=== PATIENT | male | born 1960 | race Caucasian/White ===

== ENCOUNTER 2018-05-30 06:09 | Inpatient (IN) | payer OTHER ==
[2018-05-30] MEDS ORDERED: HEPARIN NA (PORCINE) 5,000 UNITS/ML 1ML VIAL ONE (07:35)
[2018-05-30] MEDS ORDERED: THROMBIN (BOVINE) 5,000 UNIT VIAL TP ONE (07:35)
[2018-05-30] MEDS ORDERED: BENZOIN/ALOE VERA/STORAX/TOLU 58 ML BOTTLE ONE (07:35)
[2018-05-30] MEDS ORDERED: ceFAZolin SODIUM 1 GM VIAL ONE ×2 (07:55→12:59)
[2018-05-30] MEDS ORDERED: SODIUM CHLORIDE 0.9% P/F 10 ML VIAL IJ ONE (07:55)
[2018-05-30] MEDS ORDERED: VANCOMYCIN 1,000 MG VIAL (RESTRICTED TO ID ONLY) ONE (07:55)
[2018-05-30] MEDS ORDERED: TRANEXAMIC ACID 1000 MG/10 ML VIAL ONE ×2 (07:55→10:31)
[2018-05-30] MEDS ORDERED: DEXAMETHASONE SOD PHOSPHATE 4 MG/1 ML VIAL ONE (07:56)
[2018-05-30] MEDS ORDERED: LIDOCAINE HCL/PF 2% SDV 5ML VIAL ONE (07:56)
[2018-05-30] MEDS ORDERED: fentaNYL CITRATE 250 MCG/5 ML VIAL ONE ×2 (07:56→08:21)
[2018-05-30] MEDS ORDERED: ONDANSETRON 4 MG/2 ML VIAL ONE ×2 (07:56→12:56)
[2018-05-30] MEDS ORDERED: MIDAZOLAM HCL 2 MG/2 ML SINGLE DOSE VIAL ONE ×5 (07:56)
[2018-05-30] MEDS ORDERED: PROPOFOL 20 ML ONE ×12 (07:57→12:01)
[2018-05-30] MEDS ORDERED: SUCCINYLCHOLINE CHLORIDE 200 MG/10 ML VIAL ONE (07:57)
[2018-05-30] MEDS ORDERED: ROCURONIUM BROMIDE 50 MG/5 ML VIAL ONE (07:57)
[2018-05-30] MEDS ORDERED: VANCOMYCIN 1,000 MG VIAL (RESTRICTED TO ID ONLY) IVPB ONE (09:00)
[2018-05-30] MEDS ORDERED: ceFAZolin 2 GRAM PREMIX BAG IVPB ONE (09:13)
[2018-05-30] MEDS ORDERED: ceFAZolin SODIUM 1 GM VIAL IVPB ONE (12:00)
--- NOTE | 2018-05-30 13:17 | PN ---
Progress Note (short form) - Note Progress Note: 58M s/p L2-S1 laminectomies; L4-5 SPO; L3-4, L4-5, L5-S1 PLIF; L2-S1 PISF POD # 0. -Admit to ICU post-op. -Pain control: per anaesthesia team; recommend RUBBER CUTTER. -DVT PPx: - Mechanical only: BEAN's, SCD's. -Incentive spirometry. -PT/OT/Rehab, OOB. -WBAT B/L LE. -q4h B/L LE NV checks. -Post-op antibiotics x 2 doses. -NPO until flatus. -f/u AM labs. -f/u drain output. -d/c Irwin catheter when ambulating. -Care per medical hospitalist team. -Discharge planning: [facility]; call for appointment; . -Will follow. Aneesh Lord MD (Orthopaedic Surgery).
[2018-05-30] MEDS ORDERED: ONDANSETRON 4 MG/2 ML VIAL IVPUSH PRN ×2 (13:19→13:22)
--- NOTE | 2018-05-30 13:19 | OP ---
Operative Note - Note: Operative Date: 05/30/18 Pre-Operative Diagnosis: Lumbar spinal stenosis Operation: 1. L2-S1 laminectomies. 2. L4-5 SPO. 3. L3-4, L4-5, L5-S1 PLIF. 4. L2-S1 PISF. 5. Autograft. 6. Allograft Post-Operative Diagnosis: Same as Pre-op Surgeon: Aneesh Lord Cartridge Filler: Rodriguez Lord Anesthesiologist/MONUMENT SETTER: Luis Huntley Anesthesia: General Specimens Removed: L3-4, L4-5, L5-S1 discs Estimated Blood Loss (mls): 800 Drains & Tubes with Location: 1 x superficial HemoVac Blood Volume Replaced (mls): 375 (Cell Saver) Fluid Volume Replaced (mls): 1,800 (Crystalloid) Operative Report Dictated: Yes
[2018-05-30] MEDS ORDERED: ACETAMINOPHEN 1000 MG/100 ML VIAL (NON FORMULARY) IVPB SCH ×2 (13:30→14:10)
[2018-05-30] MEDS ORDERED: HYDROmorphone *PCA* 10MG/50ML DISP.SYRIN PCA SCH (13:30)
[2018-05-30] MEDS ORDERED: LACTATED RINGERS SOLUTION 1,000 ML IV SCH (13:30)
[2018-05-30] MEDS ORDERED: LORazepam 2 MG/ML SDV VIAL ONE ×2 (14:27→20:52)
[2018-05-30] MEDS: LACTATED RINGERS SOLUTION 1,000 ML IV SCH ×2 (15:00→16:49)
--- NOTE | 2018-05-30 16:28 | CONSULT ---
Consultation: REQUESTING PROVIDER: CONSULT REQUEST: We have been asked to medically evaluate this patient for (ICU admission post-op). HISTORY OF PRESENT ILLNESS: 58 yo male admitted to the ICU s/p L2-S1 laminectomies; L4-5 SPO; L3-4, L4-5, L5 -S1 PLIF; L2-S1 PISF. Post-op day 0. He is currently complaining of 9/10 back pain laying in bed. He states that his pre-op pain was 10/10. He denies Headache , fever, chills, SOB, cough, chest pain, nausea, vomiting, weakness, parasthesias. REVIEW OF SYSTEMS: CONSTITUTIONAL: Absent: fever, chills, diaphoresis, generalized weakness, malaise, loss of appetite, weight change HEENT: Absent: rhinorrhea, nasal congestion, throat pain, throat swelling, difficulty swallowing, mouth swelling, ear pain, eye pain, visual changes CARDIOVASCULAR: Absent: chest pain, syncope, palpitations, irregular heart rate, lightheadedness , peripheral edema RESPIRATORY: Absent: cough, shortness of breath, dyspnea with exertion, orthopnea, wheezing, stridor, hemoptysis GASTROINTESTINAL: Absent: abdominal pain, abdominal distension, nausea, vomiting, diarrhea, constipation, melena, hematochezia GENITOURINARY: Absent: dysuria, frequency, urgency, hesitancy, hematuria, flank pain, genital pain MUSCULOSKELETAL: back pain Absent: myalgia, arthralgia, joint swelling, neck pain SKIN: Absent: rash, itching, pallor HEMATOLOGIC/IMMUNOLOGIC: Absent: easy bleeding, easy bruising, lymphadenopathy, frequent infections ENDOCRINE: Absent: unexplained weight gain, unexplained weight loss, heat intolerance, cold intolerance NEUROLOGIC: decreased sensation on great toes b/l Absent: headache, focal weakness or paresthesias, dizziness, unsteady gait, seizure, mental status changes, bladder or bowel incontinence PSYCHIATRIC: Absent: anxiety, depression, suicidal or homicidal ideation, hallucinations. PHYSICAL EXAMINATION Vital Signs - 24 hr 05/30/18 05/30/18 05/30/18 06:57 07:03 13:13 Temperature 98.8 F 99.0 F Pulse Rate 70 94 H Respiratory 20 18 Rate Blood Pressure 139/79 124/90 O2 Sat by Pulse 99 98 Oximetry (%) 05/30/18 05/30/18 05/30/18 13:30 13:35 13:45 Temperature Pulse Rate 80 80 83 Respiratory 16 16 15 Rate Blood Pressure 125/83 125/83 130/75 O2 Sat by Pulse 99 100 Oximetry (%) 05/30/18 05/30/18 05/30/18 14:00 14:15 14:30 Temperature Pulse Rate 82 89 84 Respiratory 13 18 15 Rate Blood Pressure 136/80 137/74 138/71 O2 Sat by Pulse 100 100 99 Oximetry (%) 05/30/18 14:45 Temperature Pulse Rate 81 Respiratory 12 Rate Blood Pressure 139/79 O2 Sat by Pulse 100 Oximetry (%) GENERAL: Awake, alert, and fully oriented, in no acute distress. HEAD: Normal with no signs of trauma. EYES: PERRL, sclera anicteric, conjunctiva clear. No lid lag. EARS, NOSE, THROAT: Ears normal, nares patent, oropharynx clear without exudates. Moist mucous membranes. NECK: supple without lymphadenopathy, JVD, or masses. LUNGS: Breath sounds equal, clear to auscultation bilaterally. No wheezes, and no crackles. No accessory muscle use. HEART: Regular rate and rhythm, normal S1 and S2 without murmur, rub or gallop. ABDOMEN: Soft, nontender, not distended, hypoactive bowel sounds, no guarding, no rebound, no masses. MUSCULOSKELETAL: Dressing clean dry and in tact in the Lumbar region of the back. No bony deformities or tenderness. No CVA tenderness. UPPER EXTREMITIES: 2+ pulses, warm, well-perfused. No cyanosis. No clubbing. No peripheral edema. LOWER EXTREMITIES: 2+ pulses, warm, well-perfused. No calf tenderness. No peripheral edema. NEUROLOGICAL: Cranial nerves II-XII grossly intact. Normal speech. Gait unable to be observed PSYCHIATRIC: Cooperative. Good eye contact. Appropriate mood and affect. SKIN: Warm, dry, normal turgor, no rashes or lesions noted. Laboratory Results - last 24 hr 05/30/18 09:31 Blood Type O POSITIVE Antibody Screen Negative Active Medications Generic Name Dose Route Start Last Admin Trade Name Freq PRN Reason Stop Dose Admin Acetaminophen 1,000 mg 05/30/18 14:10 Ofirmev Injection - IVPB 06/01/18 10:01 Q8H-IV SUHAIL Bacitracin 1 applic 05/30/18 22:00 Bacitracin - TP BID SUHAIL Hydromorphone HCl 10 mg 05/30/18 14:11 Dilaudid Bankruptcy Manager - DEBUBBLIZER 06/02/18 13:22 DEBUBBLIZER SUHAIL Protocol Lactated Ringer's 1,000 mls @ 125 mls/hr 05/30/18 13:30 Lactated Ringers Solution IV ASDIR SUHAIL Cefazolin Sodium/Dextrose 2 gm in 50 mls @ 100 mls/hr 05/30/18 20:00 Ancef 2 Gm Premixed Ivpb - IVPB 05/31/18 04:29 Q8H SUHAIL Lorazepam 1 mg 05/30/18 13:21 Ativan Injection - IVPUSH Q6H PRN MUSCLE SPASMS Ondansetron HCl 4 mg 05/30/18 13:19 Zofran Injection IVPUSH Q6H PRN NAUSEA AND/OR VOMITING Ondansetron HCl 4 mg 05/30/18 13:22 Zofran Injection IVPUSH 05/31/18 03:00 Q6H PRN NAUSEA AND/OR VOMITING ASSESSMENT/PLAN: 58 yo male admitted to the ICU s/p L2-S1 laminectomies; L4-5 SPO; L3-4, L4-5, L5 -S1 PLIF; L2-S1 PISF. Post-op day 0. Neuro -post-op day 0 -Neuro checks Q4 as per surgery recommendation Cardio -No known cardiac issues at this time Respiratory -No known respiratory problems -Incentive spirometry to decrease risk of post-op atelectasis/pneumonia GI -NPO until flatus -Will add bowel regimen as necessary -Zofran PRN for nausea/vomiting Post-op Management -Pain control: DEBUBBLIZER as per anesthesia Will monitor pain and switch to PO pain medication when able Ofirmev 1000mg IV Q8 PRN Ativan 1mg IV Q6 PRN for muscle spasms -OOB as tolerated -d/c dumont when Ambulating DVT Prophylaxis -TEDs/SCDs only as per surgery FEN -Fluids: LR @ 125 cc/hr -Electrolytes: No electrolyte abnormalities, will follow BMP -Nutrition: NPO until Flatus Disposition Monitor in the ICU for now Problem List - Problems (1) Lumbar back pain with radiculopathy affecting lower extremity Code(s): M54.16 - RADICULOPATHY, LUMBAR REGION Visit type - Emergency Visit Emergency Visit: No - New Patient This patient is new to me today: Yes Date on this admission: 05/30/18 - Critical Care Critical Care patient: Yes Total Critical Care Time (in minutes): 35 Critical Care Statement: The care of this patient involved high complexity decision making to prevent further life threatening deterioration of the patient 's condition and/or to evaluate & treat vital organ system(s) failure or risk of failure.
[2018-05-30] MEDS: HYDROmorphone *PCA* 10MG/50ML DISP.SYRIN PCA SCH (16:49)
[2018-05-30 18:55] LABS: HEMATOCRIT 37.6 % (35.4-49); LYMPH % 5.6 % (8-40); MCH 31.5 pg (25.7-33.7); MCHC 34.6 g/dl (32.0-35.9); MEAN CELL VOLUME 91.1 fl (80-96); MEAN PLT VOLUME 7.6 fl (7.5-11.1); MONO % 9.8 % (3.8-10.2); NEUT % 84.6 % (42.8-82.8); PLATELET COUNT 248 K/MM3 (134-434); RBC 4.13 M/mm3 (4.00-5.60); RDW 13.1 % (11.9-15.9); WHITE BLOOD COUNT 10.2 K/mm3 (4.0-10.0)
[2018-05-30 19:39] LABS: ALBUMIN 3.5 g/dl (3.4-5.0); ANION GAP 8 (8-16); BLOOD UREA NITROGEN 11 mg/dL (7-18); CALCIUM 8.2 mg/dL (8.5-10.1); CHLORIDE 104 mmol/L (98-107); CO2 26 mmol/L (21-32); CREATININE 0.8 mg/dL (0.7-1.3); GLUCOSE,RANDOM 126 mg/dL (74-106); POTASSIUM 4.5 mmol/L (3.5-5.1); SGOT/AST 47 U/L (15-37); SGPT/ALT 37 U/L (12-78); SODIUM 138 mmol/L (136-145); TOT PROT 6.3 g/dl (6.4-8.2)
[2018-05-30 19:40] LABS: ALK PHOS 61 U/L (45-117)
[2018-05-30] MEDS ORDERED: ceFAZolin 2 GRAM PREMIX BAG IVPB SCH (20:00)
[2018-05-30] MEDS: CEFAZOLIN 2 GM/D5W 2 GM/50 ML ML IVPB SCH (20:56)
[2018-05-30] MEDS: BACITRACIN 15 GM TUBE TOPICAL OINTMENT TP SCH (21:06)
[2018-05-30] MEDS: ACETAMINOPHEN 1000 MG/100 ML VIAL (NON FORMULARY) IVPB SCH (21:06)
[2018-05-31] MEDS: CEFAZOLIN 2 GM/D5W 2 GM/50 ML ML IVPB SCH (03:17)
[2018-05-31] MEDS: ACETAMINOPHEN 1000 MG/100 ML VIAL (NON FORMULARY) IVPB SCH ×3 (05:13→22:01)
[2018-05-31 05:52] LABS: HEMATOCRIT 34.3 % (35.4-49); HEMOGLOBIN 11.9 GM/dL (11.7-16.9); MCH 31.8 pg (25.7-33.7); MCHC 34.8 g/dl (32.0-35.9); MEAN CELL VOLUME 91.4 fl (80-96); MEAN PLT VOLUME 7.2 fl (7.5-11.1); PLATELET COUNT 190 K/MM3 (134-434); RBC 3.75 M/mm3 (4.00-5.60); RDW 13.3 % (11.9-15.9); WHITE BLOOD COUNT 6.4 K/mm3 (4.0-10.0)
--- NOTE | 2018-05-31 06:33 | OP ---
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 OPERATION PERFORMED: 1. Laminectomy, L2, L3, L4, L5, S1 with associated undercutting facetectomy. 2. Diskectomy with posterior lumbar interbody fusion and cages, L3-4, L4-5, L5- S1. 3. Marion-Phillips osteotomy, L4-5. 4. Pedicle screw instrumentation, L2, L3, L4, L5, S1. 5. Posterolateral arthrodesis, L2, L3, L4, L5, S1. 6. Autologous bone graft. 7. Use of biplanar fluoroscopy and intraoperative neural monitoring. 8. Use of bone marrow aspirate concentrate. ANESTHESIA: General. ANTIBIOTICS GIVEN: Kefzol 2 g, vancomycin 1 g preoperative, Kefzol 1 g given intraoperatively. BLOOD LOSS: Approximately 600 mL. Approximately 350 mL of blood was given back via Cell Saver. OPERATION DETAILS: Patient correctly identified, brought to the operating room. Lumbar spine was prepped, draped in the routine manner with Betadine scrub solution, wiped off with alcohol, DuraPrep applied. A window drape applied. A midline incision utilized. We exposed from the tip of the spinous process of L1 right down to the tip of the spinal process of L1. The dissection was taken down the spinous process, over the lamina, facet joints after the tip of the transverse process, exposing each transverse process from L2 right to the ala of the sacrum which was itself exposed appropriately. Verification of levels with lateral fluoroscopic x-rays as well as the use of anatomical guidelines identifying the loss of segmental motional component. A central laminectomy was performed using Lexsells as well as Kerrison upcuts. Once this had been performed, the dura readily visualized. In order to achieve an undercutting facetectomy, the inferior facet with the pars interarticularis at each level was imploded into the canal. The superior facets were resected completely, providing a complete decompression. Palpating gently through the dura, the actual large lumps of disks were notable. This was at L3-4, L4-5 , and L5-S1. Each disk was dealt with in exactly the same manner. From right to left , the dura was retracted gently. Epidural veins were dealt with with bipolar set at 20 mA. The disks were identified clearly. An annulectomy and annulotomy performed. The L4-5 disk was shaved appropriately to receive a size 11 TETRAfuse spacer. The L3-4 was with a 10 mm, and the L5-S1 was with a 9-mm cage. Each cage, prior to insertion, each interbody space was noted to be free of disk material using serrated curettes, william, as well as pituitary rongeurs. All disk material was removed down to healthy endplate bone. Once this had been performed, the interbody space was packed with graft, and each interspace, a TETRAfuse implant was inserted. Once this had been performed, the Marion-Phillips osteotomy at L3-4 was then completed in order to restore his lumbar lordosis. This was by resection of the bone appropriately both left- and right-hand side. Cages were inserted at each level, measured as above. Each cage was then verified on lateral fluoroscopic x-ray to show excellent re-opening of the interbody space and foramina appropriately. The pedicles of L2 to S1 were identified using anatomical guidelines. A 4.5 drill was utilized in order to gain entry to the pedicle and to the vertebral body. Once this had been performed, each pedicle was palpated with a ball tipped feeler.. Each screw measured as 45 x 6.5 mm for all screws from L2 right down to S1. The screws were tested with intraoperative neural monitoring and found to be completely well above the safe zone of 20 mA. Once this had been completed, the rods were contoured appropriately onto the screw heads, fixed with the appropriate screw caps and tensioning torque device brought about solid fixation from L2 to S1. One crosslink applied. Solid cross linkage achieved. The intertransverse plane was then exposed using retractors to expose the transverse processes. Using a mixture of bone that was harvested from the patient's self, milled in a [employer], combined with allograft expansion as well as bone marrow aspirate concentrate of which we took 120 mL from the same wound through the ilium on the right. This was spun down to the CD34 cells and mixed with graft. Once the bone grafting had been completed, the final motors revealed no problems and complications in neural monitoring. The wounds were thoroughly lavaged. Closure was as follows: The muscle and fragmented muscle from the retractors were resected using Tipton scissors, and the closure as a complex wound closure as follows: Muscle 1 Vicryl, fascia 1 Vicryl, subcutaneous 1 and 2-0 Vicryl, skin with skin francis. DRAINAGE: A 1/8-inch Hemovac in the subcutaneous layer. OVERALL COMMENT: Operation went well. No complications. MD RENETTA Dsouza/[id number] MTDD
[2018-05-31 06:34] LABS: CALCIUM 8.1 mg/dL (8.5-10.1); CHLORIDE 101 mmol/L (98-107); POTASSIUM 4.3 mmol/L (3.5-5.1); SODIUM 138 mmol/L (136-145)
[2018-05-31 06:38] LABS: ANION GAP 6 (8-16); BLOOD UREA NITROGEN 10 mg/dL (7-18); CO2 31 mmol/L (21-32); CREATININE 0.8 mg/dL (0.7-1.3); GLUCOSE,RANDOM 98 mg/dL (74-106); MAGNESIUM 1.9 mg/dL (1.8-2.4); PHOSPHOROUS 2.7 mg/dL (2.5-4.9)
[2018-05-31] MEDS ORDERED: POTASSIUM PHOSPHATE 30 MM in DEXTROSE 5%-WATER - 250 ML IVPB ONE (07:56)
[2018-05-31] MEDS ORDERED: MAGNESIUM SULF 50% (8.12 MEQ/2 ML-1 GM VIAL) IVPB ONE (09:00)
[2018-05-31] MEDS ORDERED: NAPH,MB-DB/K PH,MBDB POWDER PACKET PO ONE (09:00)
[2018-05-31] MEDS ORDERED: MAGNESIUM OXIDE 400 MG TABLET (FP) PO ONE (09:15)
[2018-05-31] MEDS: LACTATED RINGERS SOLUTION 1,000 ML IV SCH (09:30)
[2018-05-31] MEDS: BACITRACIN 15 GM TUBE TOPICAL OINTMENT TP SCH ×2 (10:45→22:03)
--- NOTE | 2018-05-31 13:34 | PN ---
Physical Exam: SUBJECTIVE: Patient seen and examined in the ICU. States he is still having pain but improved from yesterday. Pt had flatus this morning and tolerated being out of bed. Worked with physical therapy as well and tolerated getting to chair. OBJECTIVE: Vital Signs Period Temp Pulse Resp BP Sys/Barraza Pulse Ox Last 24 Hr 98.4 F-100.3 F 77-94 10-21 110-151/26-88 94-100 GENERAL: Awake, alert, and fully oriented, in no acute distress. HEAD: Normal with no signs of trauma. EYES: PERRL, sclera anicteric, conjunctiva clear. No lid lag. EARS, NOSE, THROAT: Ears normal, nares patent, oropharynx clear without exudates. Moist mucous membranes. NECK: supple without lymphadenopathy, JVD, or masses. LUNGS: Breath sounds equal, clear to auscultation bilaterally. No wheezes, and no crackles. No accessory muscle use. HEART: Regular rate and rhythm, normal S1 and S2 without murmur, rub or gallop. ABDOMEN: Soft, nontender, not distended, normoactive bowel sounds, no guarding, no rebound, no masses. MUSCULOSKELETAL: Dressing clean dry and in tact in the Lumbar region of the back. No bony deformities or tenderness. No CVA tenderness. UPPER EXTREMITIES: 2+ pulses, warm, well-perfused. No cyanosis. No clubbing. No peripheral edema. LOWER EXTREMITIES: 2+ pulses, warm, well-perfused. No calf tenderness. No peripheral edema. NEUROLOGICAL: Cranial nerves II-XII grossly intact. Normal speech. Gait not observed PSYCHIATRIC: Cooperative. Good eye contact. Appropriate mood and affect. SKIN: Warm, dry, normal turgor, no rashes or lesions noted. Laboratory Results - last 24 hr 05/30/18 05/30/18 05/31/18 18:40 18:40 05:30 WBC 10.2 H 6.4 RBC 4.13 3.75 L Hgb 13.0 11.9 Hct 37.6 34.3 L MCV 91.1 91.4 MCH 31.5 31.8 MCHC 34.6 34.8 RDW 13.1 13.3 Plt Count 248 190 D MPV 7.6 7.2 L Absolute Neuts (auto) 8.6 Neutrophils % 84.6 H Lymphocytes % 5.6 L Monocytes % 9.8 Eosinophils % 0.0 Basophils % 0.0 Nucleated RBC % 0 Sodium 138 Potassium 4.5 Chloride 104 Carbon Dioxide 26 Anion Gap 8 BUN 11 Creatinine 0.8 Creat Clearance w eGFR > 60 Random Glucose 126 H Calcium 8.2 L Phosphorus Magnesium Total Bilirubin 1.0 AST 47 H ALT 37 Alkaline Phosphatase 61 Total Protein 6.3 L Albumin 3.5 05/31/18 05:30 WBC RBC Hgb Hct MCV MCH MCHC RDW Plt Count MPV Absolute Neuts (auto) Neutrophils % Lymphocytes % Monocytes % Eosinophils % Basophils % Nucleated RBC % Sodium 138 Potassium 4.3 Chloride 101 Carbon Dioxide 31 Anion Gap 6 L BUN 10 Creatinine 0.8 Creat Clearance w eGFR > 60 Random Glucose 98 D Calcium 8.1 L Phosphorus 2.7 Magnesium 1.9 Total Bilirubin AST ALT Alkaline Phosphatase Total Protein Albumin Active Medications Generic Name Dose Route Start Last Admin Trade Name Freq PRN Reason Stop Dose Admin Acetaminophen 1,000 mg 05/30/18 22:00 05/31/18 05:13 Ofirmev Injection - IVPB 06/01/18 06:01 1,000 mg Q8H SUHAIL Administration Bacitracin 1 applic 05/30/18 22:00 05/31/18 10:45 Bacitracin - TP 1 applic BID SUHAIL Administration Hydromorphone HCl 10 mg 05/30/18 14:11 05/30/18 16:49 Dilaudid Dowel Pointer - VP PRODUCT 06/02/18 13:22 10 mg VP PRODUCT SUHAIL Administration Protocol Lactated Ringer's 1,000 mls @ 125 mls/hr 05/30/18 13:30 05/31/18 09:30 Lactated Ringers Solution IV 125 mls/hr ASDIR SUHAIL Administration Lorazepam 1 mg 05/30/18 13:21 05/30/18 21:08 Ativan Injection - IVPUSH 1 mg Q6H PRN Administration MUSCLE SPASMS Ondansetron HCl 4 mg 05/30/18 13:19 Zofran Injection IVPUSH Q6H PRN NAUSEA AND/OR VOMITING ASSESSMENT/PLAN: 58 yo male admitted to the ICU s/p L2-S1 laminectomies; L4-5 SPO; L3-4, L4-5, L5 -S1 PLIF; L2-S1 PISF. Post-op day 1 Neuro -post-op day 1 -Neuro checks Q4 as per surgery recommendation Cardio -No known cardiac issues at this time Respiratory -No known respiratory problems -Incentive spirometry to decrease risk of post-op atelectasis/pneumonia GI -Advanced to Clear liquids, will advance as tolerated -Will add bowel regimen as necessary -Zofran PRN for nausea/vomiting Post-op Management -Pain control: VP PRODUCT as per anesthesia Will monitor pain and switch to PO pain medication when able Ofirmev 1000mg IV Q8 PRN Ativan 1mg IV Q6 PRN for muscle spasms -OOB -d/c dumont DVT Prophylaxis -TEDs/SCDs only as per surgery FEN -Fluids: LR @ 125 cc/hr, will decrease if tolerating diet -Electrolytes: Phos 2.7, Mg 1.9, repleted will follow BMP -Nutrition: Clear liquids Disposition Monitor in the ICU for now Problem List - Problems (1) Lumbar back pain with radiculopathy affecting lower extremity Code(s): M54.16 - RADICULOPATHY, LUMBAR REGION Visit type - Emergency Visit Emergency Visit: No - New Patient This patient is new to me today: No - Critical Care Critical Care patient: Yes Total Critical Care Time (in minutes): 35 Critical Care Statement: The care of this patient involved high complexity decision making to prevent further life threatening deterioration of the patient 's condition and/or to evaluate & treat vital organ system(s) failure or risk of failure.
--- NOTE | 2018-05-31 14:00 | PATH ---
Surgical Pathology Report Patient Name: SALLY SUTTON [facility]. Rec. #: [id number] /Age/Gender: 1960 (Age: 58) / M Account: [id number] Location: [facility] INDUSTRIAL ENGINEERING ANALYST Taken: 05/30/2018 Received: 05/30/2018 Reported: 05/31/2018 Physicians: Aneesh Lord M.D. Specimen(s) Received L2,L3,L4,L5,S1 DISC Clinical History Lumbar spinal stenosis Final Diagnosis [id number] DISC, LUMBAR INTERBODY FUSION: INTERVERTEBRAL DISC TISSUE AND DENSE FIBROCONNECTIVE TISSUE. Electronically Signed Christine Bull M.D. Gross Description Received in formalin labeled "B8-T1-J0-L5-S1 disc," is a 5.5 x 3.0 x 0.4 cm aggregate of sheikh red fragments of fibrocartilaginous tissue. A bottling equipment sales representative portion is submitted in one cassette. /05/30/2018 saudi05/30/2018
--- NOTE | 2018-05-31 14:40 | PN ---
Progress Note (short form) - Note Progress Note: Anesthesia postop note note 58 y/o M s/p GA for L2-S1 PLIF, diaudid visual presentation manager for postop pain management. POD#1, vss, aaox3, pain fairly well controlled, ambulated earlier Will continue visual presentation manager today No anesthesia complications.
--- NOTE | 2018-05-31 16:31 | PN ---
Teaching Attending Note Name of Resident: Ian Jacobs ATTENDING PHYSICIAN STATEMENT I saw and evaluated the patient. I reviewed the resident's note and discussed the case with the resident. I agree with the resident's findings and plan as documented. SUBJECTIVE: Patient seen and examined in the ICU. Awake and alert. Back pain reported to be better than last night. Intake & Output 05/28/18 05/29/18 05/30/18 05/31/18 23:59 23:59 23:59 23:59 Intake Total 2800 1900 Output Total 1920 3400 Balance 880 -1500 Weight 238 lb 6.4 oz Last Vital Signs Temp Pulse Resp BP Pulse Ox 98.9 F 92 H 20 139/89 99 05/31/18 16:00 05/31/18 16:00 05/31/18 16:00 05/31/18 16:00 05/30/18 21:00 Active Medications Acetaminophen (Ofirmev Injection -) 1,000 mg IVPB Q8H SUHAIL Stop: 06/01/18 06:01 Last Admin: 05/31/18 14:55 Dose: 1,000 mg Bacitracin (Bacitracin -) 1 applic TP BID SUHAIL Last Admin: 05/31/18 10:45 Dose: 1 applic Hydromorphone HCl (Dilaudid Tank Tender -) 10 mg GRE TUTOR GRE TUTOR [facility]; Protocol Stop: 06/02/18 13:22 Last Admin: 05/30/18 16:49 Dose: 10 mg Lactated Ringer's (Lactated Ringers Solution) 1,000 mls @ 125 mls/hr IV ASDIR SUHAIL Last Admin: 05/31/18 09:30 Dose: 125 mls/hr Lorazepam (Ativan Injection -) 1 mg IVPUSH Q6H PRN PRN Reason: MUSCLE SPASMS Last Admin: 05/30/18 21:08 Dose: 1 mg Ondansetron HCl (Zofran Injection) 4 mg IVPUSH Q6H PRN PRN Reason: NAUSEA AND/OR VOMITING GENERAL: Awake, alert, and fully oriented, NAD HEAD: Normal with no signs of trauma. EYES: PERRL, sclera anicteric, conjunctiva clear. No lid lag. EARS, NOSE, THROAT: Ears normal, nares patent, oropharynx clear without exudates. Moist mucous membranes. NECK: supple without lymphadenopathy, JVD, or masses. LUNGS: Clear to auscultation bilaterally. No wheezes, and no crackles. No accessory muscle use. HEART: Regular rate and rhythm, normal S1 and S2 without murmur, rub or gallop. ABDOMEN: Soft, nontender, not distended, hypoactive bowel sounds, no guarding, no rebound, no masses. MUSCULOSKELETAL: Dressing clean dry and in tact in the Lumbar region of the back. No CVA tenderness. UPPER EXTREMITIES: 2+ pulses, warm, well-perfused. No cyanosis. No clubbing. No peripheral edema. LOWER EXTREMITIES: 2+ pulses, warm, well-perfused. No calf tenderness. No peripheral edema. NEUROLOGICAL: Non-focal PSYCHIATRIC: Cooperative. Good eye contact. Appropriate mood and affect. SKIN: Warm, dry, normal turgor, no rashes or lesions noted. Laboratory Results - last 24 hr 05/30/18 05/30/18 05/31/18 18:40 18:40 05:30 WBC 10.2 H 6.4 RBC 4.13 3.75 L Hgb 13.0 11.9 Hct 37.6 34.3 L MCV 91.1 91.4 MCH 31.5 31.8 MCHC 34.6 34.8 RDW 13.1 13.3 Plt Count 248 190 D MPV 7.6 7.2 L Absolute Neuts (auto) 8.6 Neutrophils % 84.6 H Lymphocytes % 5.6 L Monocytes % 9.8 Eosinophils % 0.0 Basophils % 0.0 Nucleated RBC % 0 Sodium 138 Potassium 4.5 Chloride 104 Carbon Dioxide 26 Anion Gap 8 BUN 11 Creatinine 0.8 Creat Clearance w eGFR > 60 Random Glucose 126 H Calcium 8.2 L Phosphorus Magnesium Total Bilirubin 1.0 AST 47 H ALT 37 Alkaline Phosphatase 61 Total Protein 6.3 L Albumin 3.5 05/31/18 05:30 WBC RBC Hgb Hct MCV MCH MCHC RDW Plt Count MPV Absolute Neuts (auto) Neutrophils % Lymphocytes % Monocytes % Eosinophils % Basophils % Nucleated RBC % Sodium 138 Potassium 4.3 Chloride 101 Carbon Dioxide 31 Anion Gap 6 L BUN 10 Creatinine 0.8 Creat Clearance w eGFR > 60 Random Glucose 98 D Calcium 8.1 L Phosphorus 2.7 Magnesium 1.9 Total Bilirubin AST ALT Alkaline Phosphatase Total Protein Albumin ASSESSMENT/PLAN: POD #1: L2-S1 laminectomies; L4-5 SPO; L3-4, L4-5, L5-S1 PLIF; L2-S1 PISF. Pain control O2 as needed VTE prophylaxis NPO until flatus Incentive Spirometry Ativan PRN OOB to chair D/C dumont when mobile PO as tolerated Dr Crowe Critical care time spent in reviewing chart, evaluating patient and formulating plan - 36 minutes.
--- NOTE | 2018-05-31 16:52 | PN ---
Teaching Attending Note Name of Resident: April Rodriguez ATTENDING PHYSICIAN STATEMENT I saw and evaluated the patient. I reviewed the resident's note and discussed the case with the resident. I agree with the resident's findings and plan as documented. SUBJECTIVE:states pain is better today. improves with PIPELINE SYSTEMS OPERATOR pump. states does not have an appetite and wants to stick to liquid diet for today. denies Cp, SOB, fever, chills, N/V/C/D OBJECTIVE: Last Vital Signs Temp Pulse Resp BP Pulse Ox 98.9 F 92 H 20 139/89 99 05/31/18 16:00 05/31/18 16:00 05/31/18 16:00 05/31/18 16:00 05/30/18 21:00 General NAD CV S1 S2 RRR no murmur/rub/gallop Lungs CTA B/L no wheezing/rales/rhonchi back +hemostat with drain extremities sensation grossly intact, strength equal in flexion/extension in proximal and distal muscles ASSESSMENT AND PLAN: 58yo M wtih PMH insomnia, dyslipidemia and spinal stenosis which scheduled back surgery 1. spinal stenosis- s/p L2-S1 laminectomies; L4-5 SPO; L3-4, L4-5, L5-S1 PLIF; L2-S1 PISF performed on 05/30. tolerated surgery well. pain is controlled with PIPELINE SYSTEMS OPERATOR pump however pt is locking himself out. would cont pump for an additional day and attempt to transition to oral in next 24H. completed johanna-operative Abx. frequent neurochecks, OOB to chair. d/c dumont if ambulating. d/c IVF once tolerating diet. wound management per ortho. further recommendations per ortho 2. Acute blood loss anemia- due to surgery. EBV 800cc with cell saver. Hgb stable. will cont to monitor. no indication for txn at this time 3. dyslipidemia- re-start statin once tolerating diet 4. insomnia- ambien prn 5. DVT ppx- SCD. would hold pharmacologic anticoagulation with recent surgery 6. stable for transfer to floors The care of this patient involved high complexity decision making to prevent further life threatening deterioration of the patient's condition and/or to evaluate & treat vital organ system(s) failure or risk of . 40 minutes
--- NOTE | 2018-05-31 18:25 | PN ---
Physical Exam: SUBJECTIVE: Patient seen and examined this morning in the ICU. States the pain is still 9/10. Currently on LEASING REPRESENTATIVE pump. Last BM was Wednesday. He does not have an appetite and would prefer to be on a liquid diet for today. Continues to have some throat soreness. Denies fevers, chills, chest pain, SOB, nausea, vomiting. OBJECTIVE: Vital Signs Period Temp Pulse Resp BP Sys/Barraza Pulse Ox Last 24 Hr 98.4 F-100.5 F 80-94 11- 124-151/26- 99 GENERAL: The patient is awake, alert, and fully oriented, in no acute distress. THROAT: Oropharynx clear without exudates, moist mucous membranes. LUNGS: Breath sounds equal, clear to auscultation bilaterally, no wheezes, no crackles HEART: Regular rate and rhythm, S1, S2 without murmur, rub or gallop. ABDOMEN: Soft, nontender, nondistended, normoactive bowel sounds, no guarding, no rebound : Dumont catheter draining dark yellow urine BACK: Large bandage covering wound, Hemovac with drain present, no surrounding erythema or drainage EXTREMITIES: 2+ pulses, warm, no edema, Muscle strength 5/5 throughout NEUROLOGICAL: CN II-XII grossly intact, Normal speech, gait not observed, C5-T1 gross sensation intact b/l, L4 Sensation greater on the Left, L5-S1 gross sensation intact b/l Laboratory Results - last 24 hr 05/30/18 05/30/18 05/31/18 18:40 18:40 05:30 WBC 10.2 H 6.4 RBC 4.13 3.75 L Hgb 13.0 11.9 Hct 37.6 34.3 L MCV 91.1 91.4 MCH 31.5 31.8 MCHC 34.6 34.8 RDW 13.1 13.3 Plt Count 248 190 D MPV 7.6 7.2 L Absolute Neuts (auto) 8.6 Neutrophils % 84.6 H Lymphocytes % 5.6 L Monocytes % 9.8 Eosinophils % 0.0 Basophils % 0.0 Nucleated RBC % 0 Sodium 138 Potassium 4.5 Chloride 104 Carbon Dioxide 26 Anion Gap 8 BUN 11 Creatinine 0.8 Creat Clearance w eGFR > 60 Random Glucose 126 H Calcium 8.2 L Phosphorus Magnesium Total Bilirubin 1.0 AST 47 H ALT 37 Alkaline Phosphatase 61 Total Protein 6.3 L Albumin 3.5 05/31/18 05:30 WBC RBC Hgb Hct MCV MCH MCHC RDW Plt Count MPV Absolute Neuts (auto) Neutrophils % Lymphocytes % Monocytes % Eosinophils % Basophils % Nucleated RBC % Sodium 138 Potassium 4.3 Chloride 101 Carbon Dioxide 31 Anion Gap 6 L BUN 10 Creatinine 0.8 Creat Clearance w eGFR > 60 Random Glucose 98 D Calcium 8.1 L Phosphorus 2.7 Magnesium 1.9 Total Bilirubin AST ALT Alkaline Phosphatase Total Protein Albumin Active Medications Acetaminophen (Ofirmev Injection -) 1,000 mg IVPB Q8H SUHAIL Stop: 06/01/18 06:01 Last Admin: 05/31/18 14:55 Dose: 1,000 mg Bacitracin (Bacitracin -) 1 applic TP BID SUHAIL Last Admin: 05/31/18 10:45 Dose: 1 applic Hydromorphone HCl (Dilaudid Order Booker -) 10 mg LEASING REPRESENTATIVE LEASING REPRESENTATIVE SUHAIL; Protocol Stop: 06/02/18 13:22 Last Admin: 05/30/18 16:49 Dose: 10 mg Lactated Ringer's (Lactated Ringers Solution) 1,000 mls @ 125 mls/hr IV ASDIR SUHAIL Last Admin: 05/31/18 09:30 Dose: 125 mls/hr Lorazepam (Ativan Injection -) 1 mg IVPUSH Q6H PRN PRN Reason: MUSCLE SPASMS Last Admin: 05/30/18 21:08 Dose: 1 mg Ondansetron HCl (Zofran Injection) 4 mg IVPUSH Q6H PRN PRN Reason: NAUSEA AND/OR VOMITING ASSESSMENT/PLAN: 58 y/o M with PMHx of Spinal stenosis is PostOp in the ICU 1. Spinal Stenosis - S/P L2-S1 laminectomies, L4-5 SPO, L3-S1 PLIF, L2-S1 PISF POD#1 (Sx on 05/30) - Pain controlled with LEASING REPRESENTATIVE pump, continue - Completed 2 doses of Cefazolin johanna-operatively - Continue Incentive spirometry - Continue Frequent neurochecks - Encourage to be out of bed - Can d/c dumont once ambulating - PT/OT - Can d/c IVF once tolerating diet - Wound management instructions as per ortho - Clear liquid diet 2. Acute blood loss anemia - 600ml loss during surgery, 350ml returned via cell saver - Hgb remians stable - Continue to monitor, CBC tmrw 3. HLD - Continue home dose Atorvastatin 10mg PO Daily once tolerating diet 4. Insomnia - Continue home dose Ambien 10mg PO Daily PRN 5. PPX - DVT: SCD 6. FEN - Continue oral hydration - Replete lytes as needed - Clear liquid diet Dispo: transfer to floors Visit type - Emergency Visit Emergency Visit: No - New Patient This patient is new to me today: Yes Date on this admission: 05/31/18 - Critical Care Critical Care patient: Yes Total Critical Care Time (in minutes): 36 Critical Care Statement: The care of this patient involved high complexity decision making to prevent further life threatening deterioration of the patient 's condition and/or to evaluate & treat vital organ system(s) failure or risk of failure.
[2018-05-31] MEDS ORDERED: LORazepam 2 MG/ML SDV VIAL IVPUSH PRN (18:37)
[2018-05-31] MEDS ORDERED: HYDROmorphone *PCA* 10MG/50ML DISP.SYRIN PCA SCH (18:37)
[2018-05-31] MEDS ORDERED: LACTATED RINGERS SOLUTION 1,000 ML IV SCH (18:37)
[2018-05-31] MEDS ORDERED: ONDANSETRON 4 MG/2 ML VIAL IVPUSH PRN (18:37)
[2018-06-01 05:50] LABS: BASO % 0.3 % (0-2.0); EOS % 0.8 % (0-4.5); HEMOGLOBIN 11.6 GM/dL (11.7-16.9); LYMPH % 18.6 % (8-40); MCH 31.4 pg (25.7-33.7); MCHC 34.1 g/dl (32.0-35.9); MEAN CELL VOLUME 92.1 fl (80-96); MEAN PLT VOLUME 7.2 fl (7.5-11.1); MONO % 13.1 % (3.8-10.2); NEUT % 67.2 % (42.8-82.8); PLATELET COUNT 199 K/MM3 (134-434); RBC 3.69 M/mm3 (4.00-5.60); RDW 13.2 % (11.9-15.9)
[2018-06-01 06:11] LABS: ANION GAP 6 (8-16); BLOOD UREA NITROGEN 9 mg/dL (7-18); CALCIUM 8.3 mg/dL (8.5-10.1); CHLORIDE 102 mmol/L (98-107); CO2 31 mmol/L (21-32); CREATININE 0.9 mg/dL (0.7-1.3); GLUCOSE,RANDOM 110 mg/dL (74-106); PHOSPHOROUS 2.5 mg/dL (2.5-4.9); POTASSIUM 3.7 mmol/L (3.5-5.1); SODIUM 139 mmol/L (136-145)
[2018-06-01] MEDS: ACETAMINOPHEN 1000 MG/100 ML VIAL (NON FORMULARY) IVPB SCH (06:12)
[2018-06-01] MEDS ORDERED: POTASSIUM CHLORIDE TABS 20 MEQ TABLET.ER (FP) PO ONE (08:00)
--- NOTE | 2018-06-01 08:34 | PN ---
Physical Exam: SUBJECTIVE: Patient seen and examined this morning in ICU. Patient pain is down to 6/10 this morning. He has been ambulating throughout the ICU over night. Patient feels some itching over the wound site. Additionally feels some nausea overnight, otherwise no new complaints. No longer using dumont. Denies fevers, chills, chest pain, SOB. OBJECTIVE: Vital Signs Period Temp Pulse Resp BP Sys/Barraza Pulse Ox Last 24 Hr 98.1 F-101 F 86-100 14-22 124-152/68-89 99-99 GENERAL: The patient is awake, alert, and fully oriented, in no acute distress. THROAT: Oropharynx clear without exudates, moist mucous membranes. LUNGS: Breath sounds equal, clear to auscultation bilaterally, no wheezes, no crackles HEART: Regular rate and rhythm, S1, S2 without murmur, rub or gallop. ABDOMEN: Soft, nontender, nondistended, normoactive bowel sounds, no guarding, no rebound BACK: Large bandage covering wound, Hemovac draining some pink fluid, no surrounding erythema or drainage EXTREMITIES: 2+ pulses, warm, no edema, Muscle strength 5/5 throughout NEUROLOGICAL: CN II-XII grossly intact, Normal speech, gait not observed, C5-T1 gross sensation intact b/l, L4-S1 gross sensation intact b/l, Not wearing SCD's Laboratory Results - last 24 hr 06/01/18 06/01/18 05:30 05:30 WBC 7.0 RBC 3.69 L Hgb 11.6 L Hct 34.0 L MCV 92.1 MCH 31.4 MCHC 34.1 RDW 13.2 Plt Count 199 MPV 7.2 L Absolute Neuts (auto) 4.7 Neutrophils % 67.2 D Lymphocytes % 18.6 D Monocytes % 13.1 H Eosinophils % 0.8 D Basophils % 0.3 D Nucleated RBC % 0 Sodium 139 Potassium 3.7 Chloride 102 Carbon Dioxide 31 Anion Gap 6 L BUN 9 Creatinine 0.9 Creat Clearance w eGFR > 60 Random Glucose 110 H Calcium 8.3 L Phosphorus 2.5 Magnesium 2.0 Active Medications Atorvastatin Calcium (Lipitor -) 10 mg PO HS SUHAIL Bacitracin (Bacitracin -) 1 applic TP BID SUHAIL Last Admin: 06/01/18 10:20 Dose: 1 applic Docusate Sodium (Colace -) 100 mg PO TID SUHAIL Lorazepam (Ativan Injection -) 1 mg IVPUSH Q6H PRN PRN Reason: MUSCLE SPASMS Multivitamins/Minerals/Vitamin C (Tab-A-Vit -) 1 tab PO DAILY SUHAIL Ondansetron HCl (Zofran Injection) 4 mg IVPUSH Q6H PRN PRN Reason: NAUSEA AND/OR VOMITING Oxycodone HCl (Roxicodone -) 5 mg PO Q4H PRN PRN Reason: PAIN LEVEL 4 - 6 Oxycodone HCl (Roxicodone -) 10 mg PO Q4H PRN PRN Reason: PAIN LEVEL 6-10 Last Admin: 06/01/18 12:42 Dose: 10 mg ASSESSMENT/PLAN: 58 y/o M with PMHx of Spinal stenosis is PostOp in the ICU 1. Spinal Stenosis - S/P L2-S1 laminectomies, L4-5 SPO, L3-S1 PLIF, L2-S1 PISF POD#2 (Sx on 05/30) - D/C Pain control with POKER MANAGER pump, Switch to Oxycodone - Completed 2 doses of Cefazolin johanna-operatively - Continue Incentive spirometry - Continue Frequent neurochecks - Encourage to be out of bed - PT/OT, was able to ambulate 110 ft with walker - Wound management instructions as per ortho - Advanced to regular diet; No longer on fluids - Colace 100mg Daily added - Hemovac collected approx. 700mL 2. Acute blood loss anemia - 600ml loss during surgery, 350ml returned via cell saver - Hgb remians stable - Continue to monitor, CBC tmrw 3. Fever - Temp overnight reached 101, likely Postop fever - Sepsis workup: CXR, UA, Blood Cx - Continue Incentive spirometry - Tylenol 650mg PO Q4H PRN 4. HLD - Continue home dose Atorvastatin 10mg PO Daily once tolerating diet 5. Insomnia - Continue home dose Ambien 10mg PO Daily PRN 6. PPX - DVT: SCD 7. FEN - PO hydration - Replete lytes as needed - Regular diet Dispo: transfer to floors Visit type - Emergency Visit Emergency Visit: No - New Patient This patient is new to me today: No - Critical Care Critical Care patient: Yes Total Critical Care Time (in minutes): 40 Critical Care Statement: The care of this patient involved high complexity decision making to prevent further life threatening deterioration of the patient 's condition and/or to evaluate & treat vital organ system(s) failure or risk of failure.
--- NOTE | 2018-06-01 09:31 | PN ---
Progress Note (short form) - Note Progress Note: POD #3 In ICU Patient doing remarkably well Ambulating in the hallway as from yesterday. Minimal incisional pain no leg pain Legs feel strong. Vitals and medical parameters as per chart. Abd Soft no flatus as yet. Neuro At baseline All fully intacrt. Wound dry Drain and dressing removed Clean dressing applied Some bloody drainage continues from the drain hole. Assess Doing well ff an L2 to S1 fusion PLAN` ` Dry dressings as needed Pain mx PT FWBAT Transfer to floor. D/C ? tomorrow ?Wednesday ` See in office in10 days.
[2018-06-01] MEDS ORDERED: DOCUSATE SODIUM 100 MG CAPSULE (FP) PO SCH (10:00)
--- NOTE | 2018-06-01 10:19 | PN ---
Progress Note (short form) - Note Progress Note: Anesthesia POD#1 S/P Spine surgery under GA and DEFENSIVE LINE COACH VSS,no N/V,pain is under control. Orals are started . A/P Discontinue the DEFENSIVE LINE COACH. oral pain meds can taken. Linette Cruz MD.
[2018-06-01] MEDS: BACITRACIN 15 GM TUBE TOPICAL OINTMENT TP SCH ×2 (10:20→21:05)
[2018-06-01 10:32] VITALS: BMI 33.5
[2018-06-01] MEDS ORDERED: oxyCODONE HCL 5 MG TABLET PO PRN (11:00)
--- NOTE | 2018-06-01 11:40 | PN ---
Progress Note (short form) - Note Progress Note: Acute Pain Note Patient seen at bedside sp lumbar decompression and fusion post op day two. Patient doing well, sitting in a chair, pain controlled, off LOCKSTITCH LINING MAKER, tolerating PO. Dept of anesthesia will sign off care at this time.
--- NOTE | 2018-06-01 11:50 | PN ---
Teaching Attending Note Name of Resident: Ian Jacobs ATTENDING PHYSICIAN STATEMENT I saw and evaluated the patient. I reviewed the resident's note and discussed the case with the resident. I agree with the resident's findings and plan as documented. SUBJECTIVE: Patient seen and examined in the ICU. Awake and alert. Back pain reported to be better than last night. No BM. Intake & Output 05/29/18 05/30/18 05/31/18 06/01/18 23:59 23:59 23:59 23:59 Intake Total 2800 3516 250 Output Total 1920 5250 80 Balance 880 -1734 170 Weight 238 lb 6.4 oz 234 lb Last Vital Signs Temp Pulse Resp BP Pulse Ox 99.2 F 96 H 16 132/63 99 06/01/18 10:00 06/01/18 10:00 06/01/18 10:00 06/01/18 10:00 06/01/18 09:00 Active Medications Atorvastatin Calcium (Lipitor -) 10 mg PO HS SUHAIL Bacitracin (Bacitracin -) 1 applic TP BID [facility] Last Admin: 06/01/18 10:20 Dose: 1 applic Docusate Sodium (Colace -) 100 mg PO TID SUHAIL Lorazepam (Ativan Injection -) 1 mg IVPUSH Q6H PRN PRN Reason: MUSCLE SPASMS Ondansetron HCl (Zofran Injection) 4 mg IVPUSH Q6H PRN PRN Reason: NAUSEA AND/OR VOMITING Oxycodone HCl (Roxicodone -) 5 mg PO Q4H PRN PRN Reason: PAIN LEVEL 4 - 6 Oxycodone HCl (Roxicodone -) 10 mg PO Q4H PRN PRN Reason: PAIN LEVEL 6-10 GENERAL: Awake, alert, and fully oriented, NAD HEAD: Normal with no signs of trauma. EYES: PERRL, sclera anicteric, conjunctiva clear. No lid lag. EARS, NOSE, THROAT: Ears normal, nares patent, oropharynx clear without exudates. Moist mucous membranes. NECK: supple without lymphadenopathy, JVD, or masses. LUNGS: Clear to auscultation bilaterally. No wheezes, and no crackles. No accessory muscle use. HEART: Regular rate and rhythm, normal S1 and S2 without murmur, rub or gallop. ABDOMEN: Soft, nontender, not distended, hypoactive bowel sounds, no guarding, no rebound, no masses. MUSCULOSKELETAL: Dressing clean dry and in tact in the Lumbar region of the back. No CVA tenderness. UPPER EXTREMITIES: 2+ pulses, warm, well-perfused. No cyanosis. No clubbing. No peripheral edema. LOWER EXTREMITIES: 2+ pulses, warm, well-perfused. No calf tenderness. No peripheral edema. NEUROLOGICAL: Non-focal PSYCHIATRIC: Cooperative. Good eye contact. Appropriate mood and affect. SKIN: Warm, dry, normal turgor, no rashes or lesions noted. Laboratory Results - last 24 hr 06/01/18 06/01/18 05:30 05:30 WBC 7.0 RBC 3.69 L Hgb 11.6 L Hct 34.0 L MCV 92.1 MCH 31.4 MCHC 34.1 RDW 13.2 Plt Count 199 MPV 7.2 L Absolute Neuts (auto) 4.7 Neutrophils % 67.2 D Lymphocytes % 18.6 D Monocytes % 13.1 H Eosinophils % 0.8 D Basophils % 0.3 D Nucleated RBC % 0 Sodium 139 Potassium 3.7 Chloride 102 Carbon Dioxide 31 Anion Gap 6 L BUN 9 Creatinine 0.9 Creat Clearance w eGFR > 60 Random Glucose 110 H Calcium 8.3 L Phosphorus 2.5 Magnesium 2.0 ASSESSMENT/PLAN: POD #2: L2-S1 laminectomies; L4-5 SPO; L3-4, L4-5, L5-S1 PLIF; L2-S1 PISF. Pain control O2 as needed VTE prophylaxis PO as tolerated Incentive Spirometry Ativan PRN OOB to chair PT / Floor Dr Crowe
[2018-06-01] MEDS: oxyCODONE HCL 5 MG TABLET PO PRN ×2 (12:42→17:55)
[2018-06-01 12:46] LABS: URINE APPEARANCE SLCLOUDY; URINE BILIRUBIN NEGATIVE (<2.0 mg/dL); URINE COLOR DKYELLOW; URINE GLUCOSE (UA) NEGATIVE (NEGATIVE); URINE KETONE NEGATIVE (NEGATIVE); URINE LEUK ESTERASE NEGATIVE (NEGATIVE); URINE NITRITE NEGATIVE (NEGATIVE); URINE UROBILINOGEN NEGATIVE mg/dL (0.2-1.0)
[2018-06-01 12:50] LABS: URINE PROTEIN 1+ (NEGATIVE)
--- NOTE | 2018-06-01 13:23 | PN ---
Physical Exam: SUBJECTIVE: Patient seen and examined in the ICU. Pt is OOB and ambulating well. States that his pain is much better and that he is tolerating the clear liquids well with no nausea or vomiting. States he would like to go home soon. OBJECTIVE: Vital Signs Period Temp Pulse Resp BP Sys/Barraza Pulse Ox Last 24 Hr 98.1 F-101 F 90-100 14-22 126-152/63-96 99-99 GENERAL: Awake, alert, and fully oriented, in no acute distress. HEAD: Normal with no signs of trauma. EYES: PERRL, sclera anicteric, conjunctiva clear. No lid lag. EARS, NOSE, THROAT: Ears normal, nares patent, oropharynx clear without exudates. Moist mucous membranes. NECK: supple without lymphadenopathy, JVD, or masses. LUNGS: Breath sounds equal, clear to auscultation bilaterally. No wheezes, and no crackles. No accessory muscle use. HEART: Regular rate and rhythm, normal S1 and S2 without murmur, rub or gallop. ABDOMEN: Soft, nontender, not distended, normoactive bowel sounds, no guarding, no rebound, no masses. MUSCULOSKELETAL: New dressing clean dry and in tact in the Lumbar region of the back, drain removed. No bony deformities or tenderness. No CVA tenderness. UPPER EXTREMITIES: warm, well-perfused. No cyanosis. No clubbing. No peripheral edema. LOWER EXTREMITIES: warm, well-perfused. No calf tenderness. No peripheral edema. NEUROLOGICAL: Cranial nerves II-XII grossly intact. Normal speech. Normal gait PSYCHIATRIC: Cooperative. Good eye contact. Appropriate mood and affect. SKIN: Warm, dry, normal turgor, no rashes or lesions noted. Laboratory Results - last 24 hr 06/01/18 06/01/18 06/01/18 05:30 05:30 09:45 WBC 7.0 RBC 3.69 L Hgb 11.6 L Hct 34.0 L MCV 92.1 MCH 31.4 MCHC 34.1 RDW 13.2 Plt Count 199 MPV 7.2 L Absolute Neuts (auto) 4.7 Neutrophils % 67.2 D Lymphocytes % 18.6 D Monocytes % 13.1 H Eosinophils % 0.8 D Basophils % 0.3 D Nucleated RBC % 0 Sodium 139 Potassium 3.7 Chloride 102 Carbon Dioxide 31 Anion Gap 6 L BUN 9 Creatinine 0.9 Creat Clearance w eGFR > 60 Random Glucose 110 H Calcium 8.3 L Phosphorus 2.5 Magnesium 2.0 Urine Color Dkyellow Urine Appearance Slcloudy Urine pH 6.0 Ur Specific Jaffrey 1.020 Urine Protein 1+ H Urine Glucose (UA) Negative Urine Ketones Negative Urine Blood 2+ H Urine Nitrite Negative Urine Bilirubin Negative Urine Urobilinogen Negative Ur Leukocyte Esterase Negative Active Medications Generic Name Dose Route Start Last Admin Trade Name Freq PRN Reason Stop Dose Admin Atorvastatin Calcium 10 mg 06/01/18 22:00 Lipitor - PO HS SUHAIL Bacitracin 1 applic 05/31/18 22:00 06/01/18 10:20 Bacitracin - TP 1 applic BID SUHAIL Administration Docusate Sodium 100 mg 06/01/18 14:00 Colace - PO TID SUHAIL Lorazepam 1 mg 05/31/18 18:37 Ativan Injection - IVPUSH Q6H PRN MUSCLE SPASMS Ondansetron HCl 4 mg 05/31/18 18:37 Zofran Injection IVPUSH Q6H PRN NAUSEA AND/OR VOMITING Oxycodone HCl 5 mg 06/01/18 11:00 Roxicodone - PO Q4H PRN PAIN LEVEL 4 - 6 Oxycodone HCl 10 mg 06/01/18 11:01 06/01/18 12:42 Roxicodone - PO 10 mg Q4H PRN Administration PAIN LEVEL 6-10 ASSESSMENT/PLAN: 58 yo male admitted to the ICU s/p L2-S1 laminectomies; L4-5 SPO; L3-4, L4-5, L5 -S1 PLIF; L2-S1 PISF. Post-op day 2 Neuro -post-op day 2 -No neuro abnormalities Cardio -No known cardiac issues at this time Respiratory -No known respiratory problems -Incentive spirometry to decrease risk of post-op atelectasis/pneumonia GI -Advanced to full diet, tolerating well -Colace 100 mg PO TID -Zofran PRN for nausea/vomiting Post-op Management -Pain control: D/C PODIATRIC ASSISTANT as per discussion with anesthesia Oxycodone 5 mg PO PRN Q4 Oxycodone 10 mg PO PRN Q4 for severe pain Ofirmev 1000mg IV Q8 PRN Ativan 1mg IV Q6 PRN for muscle spasms -OOB DVT Prophylaxis -TEDs/SCDs only as per surgery FEN -Fluids: LR @ 125 cc/hr, will decrease if tolerating diet -Electrolytes: K 3.7, repleted will follow BMP -Nutrition: Regular diet Disposition Transfer to Med/Surg Problem List - Problems (1) Lumbar back pain with radiculopathy affecting lower extremity Code(s): M54.16 - RADICULOPATHY, LUMBAR REGION Visit type - Emergency Visit Emergency Visit: No - New Patient This patient is new to me today: No - Critical Care Critical Care patient: Yes Total Critical Care Time (in minutes): 35 Critical Care Statement: The care of this patient involved high complexity decision making to prevent further life threatening deterioration of the patient 's condition and/or to evaluate & treat vital organ system(s) failure or risk of failure.
[2018-06-01 13:26] LABS: URINE MUCUS RARE; YEAST MODERATE
--- NOTE | 2018-06-01 14:01 | PN ---
Teaching Attending Note Name of Resident: April Rodriguez ATTENDING PHYSICIAN STATEMENT I saw and evaluated the patient. I reviewed the resident's note and discussed the case with the resident. I agree with the resident's findings and plan as documented. SUBJECTIVE:states pain is much improved today. denies CP, SOB, fever, chills, cough, dysuria, N/V/C/D OBJECTIVE: Last Vital Signs Temp Pulse Resp BP Pulse Ox 99.1 F 90 18 142/96 99 06/01/18 12:00 06/01/18 12:00 06/01/18 12:00 06/01/18 12:00 06/01/18 09:00 General NAD back occlusive back dressing in place. c/d/i extremities sensation grossly intact, strength equal in flexion/extension in proximal and distal muscles ASSESSMENT AND PLAN: 58yo M wtih PMH insomnia, dyslipidemia and spinal stenosis which scheduled back surgery 1. spinal stenosis- s/p L2-S1 laminectomies; L4-5 SPO; L3-4, L4-5, L5-S1 PLIF; L2-S1 PISF performed on 05/30. tolerated surgery well. d/c VP ANALYTICS pump and switch to oral medication. ambulated well with PT. further recommendations per ortho 2. Acute blood loss anemia- due to surgery. EBV 800cc with cell saver. Hgb stable. will cont to monitor. no indication for txn at this time 3. Fever- Tm 101. likely post-op fever and not infectious. will check sepsis workup. hold abx at this time. incentive spirometer. 3. dyslipidemia- statin 4. insomnia- ambien prn 5. DVT ppx- SCD. would hold pharmacologic anticoagulation with recent surgery 6. stable for transfer to floors The care of this patient involved high complexity decision making to prevent further life threatening deterioration of the patient's condition and/or to evaluate & treat vital organ system(s) failure or risk of . 35 minutes
[2018-06-01] MEDS: HYDROmorphone *PCA* 10MG/50ML DISP.SYRIN PCA SCH (16:15)
[2018-06-01] MEDS: DOCUSATE SODIUM 100 MG CAPSULE (FP) PO SCH ×2 (16:19→21:01)
[2018-06-01] MEDS: ATORVASTATIN CA 10 MG TABLET (FP) PO SCH (21:01)
[2018-06-02] MEDS: oxyCODONE HCL 5 MG TABLET PO PRN ×5 (01:16→19:17)
[2018-06-02] MEDS: ACETAMINOPHEN 325 MG TABLET (FP) PO PRN ×4 (01:17→19:17)
[2018-06-02] MEDS: DOCUSATE SODIUM 100 MG CAPSULE (FP) PO SCH ×3 (06:19→21:02)
[2018-06-02 07:17] LABS: HEMATOCRIT 31.6 % (35.4-49); HEMOGLOBIN 10.9 GM/dL (11.7-16.9); MCH 31.6 pg (25.7-33.7); MCHC 34.4 g/dl (32.0-35.9); MEAN CELL VOLUME 91.6 fl (80-96); MEAN PLT VOLUME 7.3 fl (7.5-11.1); PLATELET COUNT 184 K/MM3 (134-434); RBC 3.45 M/mm3 (4.00-5.60); RDW 12.9 % (11.9-15.9); WHITE BLOOD COUNT 7.7 K/mm3 (4.0-10.0)
[2018-06-02] MEDS: BACITRACIN 15 GM TUBE TOPICAL OINTMENT TP SCH ×2 (09:29→21:01)
[2018-06-02] MEDS: MULTIVITAMINS (DAILY MVI) TABLET (FP) PO SCH (09:38)
[2018-06-02] MEDS: POLYETHYLENE GLYCOL 3350 119 GM BTL PO SCH (10:00)
--- NOTE | 2018-06-02 13:05 | PN ---
Physical Exam: SUBJECTIVE: Patient seen and examined this morning at bedside. As per nursing, patient was given tylenol over night for his fevers. He requested his pain medications twice over night. Pain has continued to improve. Patient was seen ambulating in the hallways. Patient has not had a BM since wednesday. Denies chest pain, SOB. OBJECTIVE: Vital Signs Period Temp Pulse Resp BP Sys/Barraza Pulse Ox Last 24 Hr 100.3 F-101.6 F 86-98 16-20 135-151/58-81 98-98 GENERAL: The patient is awake, alert, and fully oriented, in no acute distress. THROAT: Oropharynx clear without exudates, moist mucous membranes. LUNGS: Breath sounds equal, clear to auscultation bilaterally, no wheezes, no crackles HEART: Regular rate and rhythm, S1, S2 without murmur, rub or gallop. ABDOMEN: Soft, nontender, nondistended, normoactive bowel sounds BACK: Large bandage covering wound without any visible blood or drainage, Hemovac no longer present, no surrounding erythema or swelling EXTREMITIES: 2+ pulses, warm, no edema, Muscle strength 5/5 throughout NEUROLOGICAL: CN II-XII grossly intact, Normal speech, C5-T1 gross sensation intact b/l, L4-S1 gross sensation intact b/l Laboratory Results - last 24 hr 06/01/18 06/02/18 09:45 06:40 WBC 7.7 RBC 3.45 L Hgb 10.9 L Hct 31.6 L MCV 91.6 MCH 31.6 MCHC 34.4 RDW 12.9 Plt Count 184 MPV 7.3 L Urine WBC (Auto) None Urine RBC (Auto) 14 Urine Mucus Rare Urine Yeast Moderate IMAGING: - CXR (05/31): Shallow inspiration. No evidence of active pulmonary disease. - CXR (06/01): No acute chest pathology Active Medications Acetaminophen (Tylenol -) 650 mg PO Q4H PRN PRN Reason: FEVER Last Admin: 06/02/18 08:48 Dose: 650 mg Atorvastatin Calcium (Lipitor -) 10 mg PO HS [facility] Last Admin: 06/01/18 21:01 Dose: 10 mg Bacitracin (Bacitracin -) 1 applic TP BID [facility] Last Admin: 06/02/18 09:29 Dose: 1 applic Docusate Sodium (Colace -) 100 mg PO TID [facility] Last Admin: 06/02/18 06:19 Dose: 100 mg Lorazepam (Ativan Injection -) 1 mg IVPUSH Q6H PRN PRN Reason: MUSCLE SPASMS Multivitamins/Minerals/Vitamin C (Tab-A-Vit -) 1 tab PO DAILY [facility] Last Admin: 06/02/18 09:38 Dose: 1 tab Ondansetron HCl (Zofran Injection) 4 mg IVPUSH Q6H PRN PRN Reason: NAUSEA AND/OR VOMITING Oxycodone HCl (Roxicodone -) 5 mg PO Q4H PRN PRN Reason: PAIN LEVEL 4 - 6 Last Admin: 06/01/18 21:03 Dose: 5 mg Oxycodone HCl (Roxicodone -) 10 mg PO Q4H PRN PRN Reason: PAIN LEVEL 6-10 Last Admin: 06/02/18 10:39 Dose: 10 mg Polyethylene Glycol (Miralax (For Daily Use) -) 17 gm PO DAILY [facility] Last Admin: 06/02/18 10:00 Dose: 17 gm ASSESSMENT/PLAN: 58 y/o M with PMHx of Spinal stenosis is PostOp 1. Spinal Stenosis - S/P L2-S1 laminectomies, L4-5 SPO, L3-S1 PLIF, L2-S1 PISF POD#3 (Surgery on ) - Completed 2 doses of Cefazolin johanna-operatively - Continue Oxycodone; 5 mg Q4H PRN for PAIN LEVEL 4 - 6 and 10 mg PO Q4H PAIN LEVEL 6-10 - Continue Incentive spirometry - Continue Frequent neurochecks - Encourage to be out of bed - PT/OT, was able to ambulate 200 ft independetly - Wound management instructions as per ortho - Continue regular diet - Continue Colace 100mg Daily; Added Miralax 17 gm PO DAILY 2. Acute blood loss anemia - 600ml loss during surgery, 350ml returned via cell saver - Hgb 11.6 --> 10.9 - Continue to monitor, CBC tmrw 3. Fever - Temp overnight reached 101.6, likely Postop fever - CXR (06/01): No acute chest pathology - UA: Negative nitrites and Leukocyte esterase, No WBCs - Blood Cx pending - Continue Incentive spirometry - Tylenol 650mg PO Q4H PRN 4. HLD - Continue home dose Atorvastatin 10mg PO Daily 5. Insomnia - Continue home dose Ambien 10mg PO Daily PRN 6. PPX - DVT: SCD 7. FEN - PO hydration - Replete lytes as needed - Regular diet Dispo: D/C once fevers resolve Visit type - Emergency Visit Emergency Visit: No - New Patient This patient is new to me today: No - Critical Care Critical Care patient: No
--- NOTE | 2018-06-02 18:52 | PN ---
Teaching Attending Note Name of Resident: April Rodriguez ATTENDING PHYSICIAN STATEMENT I saw and evaluated the patient. I reviewed the resident's note and discussed the case with the resident. I agree with the resident's findings and plan as documented. SUBJECTIVE:asymptomatic. wants to go home. denies CP, SOB, fever, chills, cough , dysuria, hematuria, N/V/C/D or calf pain OBJECTIVE: Last Vital Signs Temp Pulse Resp BP Pulse Ox 99.4 F 80 18 133/78 98 06/02/18 17:11 06/02/18 17:11 06/02/18 17:11 06/02/18 17:11 06/02/18 09:00 General NAD Lungs CTA B/L no wheezing/rales/rhonchi extremites no calf tenderness or swelling, neg homans sign ASSESSMENT AND PLAN: 58yo M wtih PMH insomnia, dyslipidemia and spinal stenosis which scheduled back surgery 1. spinal stenosis- s/p L2-S1 laminectomies; L4-5 SPO; L3-4, L4-5, L5-S1 PLIF; L2-S1 PISF performed on 05/30. tolerated surgery well. pain controlled with current regimen. further recommendations per ortho. will need outpatient follow uup. ambulated 200ft iwth PT. 2. Acute blood loss anemia- due to surgery. EBV 800cc with cell saver. Hgb stable. will cont to monitor. no indication for txn at this time 3. Fever- Tm 101.6 likely post-op fever and not infectious. UA and CXR negative. BCx pending. will hold abx at this time incentive spirometer. 3. dyslipidemia- statin 4. insomnia- ambien prn 5. DVT ppx- SCD. would hold pharmacologic anticoagulation with recent surgery 6. d/c home tomorrow if remains afebrile
[2018-06-02] MEDS: ATORVASTATIN CA 10 MG TABLET (FP) PO SCH (21:02)
[2018-06-03] MEDS: ACETAMINOPHEN 325 MG TABLET (FP) PO PRN ×3 (02:39→11:50)
[2018-06-03] MEDS: oxyCODONE HCL 5 MG TABLET PO PRN ×3 (02:39→11:51)
[2018-06-03] MEDS: DOCUSATE SODIUM 100 MG CAPSULE (FP) PO SCH ×2 (06:09→14:18)
--- NOTE | 2018-06-03 07:23 | DS ---
Physical Exam: SUBJECTIVE: Patient seen and examined while ambulating in the hallway to the [facility]. Feels more sensation in his lower extremities today. Continues to feel constipation. Continues to have pain over the incision only. Requested pain meds x 3 over night as per nursing. Denies fevers, chills, chest pain, SOB, nausea, vomiting, diarrhea. OBJECTIVE: Vital Signs Period Temp Pulse Resp BP Sys/Barraza Pulse Ox Last 24 Hr 97.7 F-100.3 F 77-91 16-18 122-151/65-91 98-98 PHYSICAL EXAM GENERAL: The patient is awake, alert, and fully oriented, in no acute distress. THROAT: Oropharynx clear without exudates, moist mucous membranes. LUNGS: Breath sounds equal, clear to auscultation bilaterally, no wheezes, no crackles HEART: Regular rate and rhythm, S1, S2 without murmur, rub or gallop. ABDOMEN: Soft, nontender, nondistended, normoactive bowel sounds BACK: Large bandage covering wound without any visible blood or drainage, Surrounding area is not tender to palpation although patient complains of tenderness over incision, no surrounding erythema or swelling EXTREMITIES: 2+ pulses, warm, no edema, Muscle strength 5/5 throughout, NEUROLOGICAL: Gait improved with less stiffness. CN II-XII grossly intact, Normal speech, C5-T1 gross sensation intact b/l, L4-S1 gross sensation intact b/ l LABS Laboratory Results - last 24 hr 06/02/18 06:40 WBC 7.7 RBC 3.45 L Hgb 10.9 L Hct 31.6 L MCV 91.6 MCH 31.6 MCHC 34.4 RDW 12.9 Plt Count 184 MPV 7.3 L HOSPITAL COURSE: Date of Admission:05/30/18 Date of Discharge: 06/03/18 Discharge Summary Reason For Visit: SPINAL STENOSIS LUMBAR Current Active Problems Lumbar back pain with radiculopathy affecting lower extremity (Acute) - Instructions - Home Medications Comprehensive Discharge Medication List: Ambulatory Orders Atorvastatin Ca [Lipitor] 10 mg PO HS 05/20/18 Cyclobenzaprine HCl [Flexeril 10 mg] 10 mg PO HS 05/20/18 Zolpidem Tartrate [Ambien] 10 mg PO HS 05/20/18
[2018-06-03] MEDS: MULTIVITAMINS (DAILY MVI) TABLET (FP) PO SCH (09:51)
[2018-06-03] MEDS: POLYETHYLENE GLYCOL 3350 119 GM BTL PO SCH (09:51)
[2018-06-03] MEDS: BACITRACIN 15 GM TUBE TOPICAL OINTMENT TP SCH (09:51)
[2018-06-03] MEDS ORDERED: Methylnaltrexone Bromide 12 MG/0.6 ML KIT SQ ONE (13:45)
--- NOTE | 2018-06-03 14:35 | PN ---
Teaching Attending Note Name of Resident: April Rodriguez ATTENDING PHYSICIAN STATEMENT I saw and evaluated the patient. I reviewed the resident's note and discussed the case with the resident. I agree with the resident's findings and plan as documented. SUBJECTIVE:asymptomatic. no BM since arrival. denies Cp, SOB, fever, hcills, cough, dysuria, N/v OBJECTIVE: Last Vital Signs Temp Pulse Resp BP Pulse Ox 98.5 F 76 18 142/75 98 06/03/18 10:00 06/03/18 10:00 06/03/18 10:00 06/03/18 10:00 06/03/18 09:00 General NAD Lungs CTA B/L no wheezing/rales/rhonchi extremites no calf tenderness or swelling, neg homans sign ASSESSMENT AND PLAN: 58yo M wtih PMH insomnia, dyslipidemia and spinal stenosis which scheduled back surgery 1. spinal stenosis- s/p L2-S1 laminectomies; L4-5 SPO; L3-4, L4-5, L5-S1 PLIF; L2-S1 PISF performed on 05/30. tolerated surgery well. pain controlled with current regimen. further recommendations per ortho. will need outpatient follow uup. ambulated 200ft iwth PT. 2. Acute blood loss anemia- due to surgery. EBV 800cc with cell saver. Hgb stable. will cont to monitor. no indication for txn at this time 3. Fever- afebrile >24H. sepsis workup negative. likely stress from surgery. no indication for abx. 4. constipation- no improvement with stool softeners and miralax.likely opiate induced. give relistor x1 5. dyslipidemia- statin 6. insomnia- ambien prn 7. DVT ppx- SCD. would hold pharmacologic anticoagulation with recent surgery 8. d/c home with outpatient ortho f/u
[2018-06-03 15:12] VITALS: BP 136/77; PULSE 77; TEMP 98.6
== END 2018-06-03 15:12 | disposition home or self-care (01) | DRG 460 ==
LOC: JSAMEDAYSX 06:09 → EDSTATUS 11:15 → JICU 16:21 → J8W 06-01 13:08
PROVIDERS: ADMIT Orthopaedic Surgery Orthopaedic Surgery of the Spine; ATTEND Internal Medicine
PROC: 0SB40ZZ Excision of Lumbosacral Disc, Open Approach (ICD-10-PCS; 2018-05-30)
PROC: 01NB0ZZ Release Lumbar Nerve, Open Approach (ICD-10-PCS; 2018-05-30)
PROC: 07DR3ZZ Extraction of Iliac Bone Marrow, Percutaneous Approach (ICD-10-PCS; 2018-05-30)
PROC: 0SG30AJ Fusion of Lumbosacral Joint with Interbody Fusion Device, Posterior Approach, Anterior Column, Open Approach (ICD-10-PCS; principal; 2018-05-30 08:00)
DX: M48.07 Spinal stenosis, lumbosacral region (principal); D62 Acute posthemorrhagic anemia; M51.17 Intervertebral disc disorders with radiculopathy, lumbosacral region; E78.5 Hyperlipidemia, unspecified; G47.00 Insomnia, unspecified; R50.82 Postprocedural fever; K59.09 Other constipation
CPT/HCPCS: 36415; 71045-TC-FY; 76000-TC-FY; 80048; 80053; 81003; 81015; 83735; 84100; 85025; 85027; 86850; 86900; 86901; 87040; 88304-TC; 94760; 97116-GP; 97161-GP; J0131; J1644